=== PATIENT | male | born 1960 | race Caucasian/White ===

== ENCOUNTER 2016-03-09 13:31 | Day surgery (SDC) | payer MEDICARE ==
[2016-03-09] MEDS ORDERED: NS 500 ML IV ONE (13:41)
[2016-03-09] MEDS ORDERED: PROPOFOL 200 MG/20 ML VIAL IVP ONE (13:41)
[2016-03-09] MEDS ORDERED: BENZOCAINE UNIT DOSE SPRAY HURRICAINE MM ONE (13:41)
[2016-03-09] MEDS ORDERED: MIDAZOLAM 2 MG/2 ML VIAL IVP ONE (13:41)
[2016-03-09] MEDS ORDERED: fentaNYL 100 MCG/2 ML INJ IVP ONE (13:41)
--- NOTE | 2016-03-09 14:03 | CPEKG ---
Heart Rate: 100 RR Interval: 600 QRSD Interval: 88 QT Interval: 352 QTC Interval: 454 QRS [place]: -29 T Wave [place]: -3 EKG Severity - ABNORMAL ECG - EKG Impression: ATRIAL FIBRILLATION, V-RATE 74-118 EKG Impression: BORDERLINE LEFT AXIS DEVIATION EKG Impression: CONSIDER ANTERIOR INFARCT EKG Impression: BORDERLINE T ABNORMALITIES, INFERIOR LEADS Electronically Signed By: Lele Holder 09-Mar-2016 19:17:14
[2016-03-09] MEDS ORDERED: PROPOFOL 200 MG/20 ML VIAL ONE (14:37)
[2016-03-09 14:40] LABS: INR 0.96 (0.83-1.16); PROTIME(PATIENT) 12.7 SEC (12.0-15.0)
[2016-03-09 14:41] LABS: APTT 26.2 SEC (23.0-38.0)
--- NOTE | 2016-03-09 15:00 | CPEKG ---
Heart Rate: 95 RR Interval: 632 P-R Interval: 208 QRSD Interval: 96 QT Interval: 372 QTC Interval: 468 P [place]: 18 QRS [place]: -28 T Wave [place]: -1 EKG Severity - ABNORMAL ECG - EKG Impression: SINUS RHYTHM EKG Impression: FIRST DEGREE AV BLOCK EKG Impression: BORDERLINE LEFT AXIS DEVIATION EKG Impression: BORDERLINE R WAVE PROGRESSION, ANTERIOR LEADS Electronically Signed By: Lele Holder 09-Mar-2016 19:17:18
[2016-03-09] MEDS ORDERED: RIVAROXABAN 20 MG TAB PO ONE (15:30)
[2016-03-09 15:45] LABS: ANION GAP 14 mEq/L (8-16); CALCIUM 9.4 mg/dL (8.5-10.4); CARBON DIOXIDE 22 mEq/l (22-31); CHLORIDE 107 mEq/L (97-110); CREATININE 0.9 mg/dL (0.7-1.3); GLOMERULAR FILTRATION RATE > 60; GLUCOSE 90 mg/dL (70-100); MAGNESIUM 2.2 mg/dL (1.6-2.3); SODIUM 143 mEq/L (134-144)
--- NOTE | 2016-03-09 16:03 | EPPROC ---
Electrophysiology Procedure Note: Procedure: CV Indication: Symptomatic AF Procedure: [place] performed and [place] clot ruled out. Pt sedated by anesthesia staaf. Once sedated, pt underwent 200J of DCCV. Pt converted to sinus rhythm. Conclusion: Successful CV Patient Problems: Problems Problem Status Diagnosed Perforation of bladder during operative procedure Acute Atrial fibrillation Acute Rectosigmoid cancer Acute
== END 2016-03-09 17:42 | disposition home or self-care (01) ==
LOC: FCATH 13:31
PROVIDERS: ATTEND Internal Medicine Cardiovascular Disease
PROC: 5A2204Z Restoration of Cardiac Rhythm, Single (ICD-10-PCS; principal; 2016-03-09)
PROC: B245ZZ4 Ultrasonography of Left Heart, Transesophageal (ICD-10-PCS; principal; 2016-03-09)
DX: I48.91 Unspecified atrial fibrillation (principal); G47.33 Obstructive sleep apnea (adult) (pediatric); E66.9 Obesity, unspecified
CPT/HCPCS: J2250; J2704

== ENCOUNTER 2016-12-14 07:25 | Day surgery (SDC) | payer OTHER ==
[2016-12-14] MEDS ORDERED: MIDAZOLAM 2 MG/2 ML VIAL IVP ONE (07:33)
[2016-12-14] MEDS ORDERED: fentaNYL 100 MCG/2 ML INJ IVP ONE (07:33)
[2016-12-14] MEDS ORDERED: ATROPINE SULFATE 1 MG/10 ML SYR IVP ONE (07:33)
[2016-12-14] MEDS ORDERED: BENZOCAINE UNIT DOSE SPRAY HURRICAINE MM ONE (07:33)
[2016-12-14] MEDS ORDERED: NS 500 ML IV ONE (07:33)
--- NOTE | 2016-12-14 07:54 | CPEKG ---
Heart Rate: 87 RR Interval: 690 QRSD Interval: 96 QT Interval: 372 QTC Interval: 448 QRS [place]: -18 T Wave [place]: -8 EKG Severity - ABNORMAL ECG - EKG Impression: ATRIAL FIBRILLATION, V-RATE 71-108 EKG Impression: PROBABLE INFERIOR INFARCT, AGE INDETERMINATE EKG Impression: BORDERLINE R WAVE PROGRESSION, ANTERIOR LEADS EKG Impression: ATRIAL FIBRILLATION IS NEW IN COMPARISON TO PRIOR ECGS Electronically Signed By: Shay Berrios 14-Dec-2016 10:59:30
--- NOTE | 2016-12-14 07:54 | CPEKG ---
Heart Rate: 87 RR Interval: 690 QRSD Interval: 96 QT Interval: 372 QTC Interval: 448 QRS [place]: -18 T Wave [place]: -8 EKG Severity - ABNORMAL ECG - EKG Impression: ATRIAL FIBRILLATION, V-RATE 71-108 EKG Impression: PROBABLE INFERIOR INFARCT, AGE INDETERMINATE EKG Impression: BORDERLINE R WAVE PROGRESSION, ANTERIOR LEADS EKG Impression: ATRIAL FIBRILLATION IS NEW IN COMPARISON TO PRIOR ECGS Electronically Signed By: Shay Berrios 14-Dec-2016 10:59:30
[2016-12-14 08:14] LABS: INR 0.96 (0.83-1.16); PROTIME(PATIENT) 12.7 SEC (12.0-15.0)
--- NOTE | 2016-12-14 08:34 | PDANEPAE ---
ANE History of Present Illness A fib recurrent ANE Past Medical History - Cardiovascular History Hx Hypertension: No Hx Arrhythmias: Yes Hx Chest Pain: No Hx Coronary Artery / Peripheral Vascular Disease: No Hx CHF / Valvular Disease: No Hx Palpitations: Yes Cardiovascular History Comment: Chronic Afib-med. New DX 05/26. Pt. stopped Xarelto in 2013 because he didn't like it. 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 - Pulmonary History Hx COPD: No Hx Asthma/Reactive Airway Disease: Yes Hx Recent Upper Respiratory Infection: No Hx Oxygen in Use at Home: No Hx Sleep Apnea: Yes Pulmonary History Comment: Respiratory difficulties to cat dander. 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 - Endocrine History Hx Diabetes: No - Renal History Hx Renal Disorders: No - Liver History Hx Hepatic Disorders: No - Neurological & Psychiatric Hx Hx Neurological and Psychiatric Disorders: No - Cancer History Hx Cancer: Yes Cancer History Comment: Colon CA-DX 06/25. Colectomy, chemo, radiation. - Congenital Disorder History Hx Congenital Disorders: No - GI History Hx Gastrointestinal Disorders: Yes Gastrointestinal History Comment: Colon CA-blood in stool. - Other Health History Other Health History: Several missing and chipped teeth. - Chronic Pain History Chronic Pain: Yes (lower back) - Surgical History Prior Surgeries: 07/2013 LOWER ANT. COLON RESECTION AND LATER REVISION DUE TO LEAK. 07/2013 LEFT PORT PLACEMENT ANE Review of Systems Review of Systems: - Exercise capacity Exercise capacity: >=4 METS ANE Patient History - Allergies Allergies/Adverse Reactions: No Known Allergies Allergy (Verified 05/10/15 17:25) - Home Medications Home Medications: Multivitamins [Multivitamin (*)] 1 each PO DAILY 07/09/14 [Last Taken 12/13/16 08:00] Aspirin EC [Aspirin EC 81 mg (*)] 81 mg PO DAILY 12/12/16 [Last Taken 12/14/16 06:30] Ibuprofen [Motrin (*)] 200 - 400 mg PO Q6 PRN 12/12/16 [Last Taken Unknown] Rivaroxaban [Xarelto] 20 mg PO DAILY 12/12/16 [Last Taken Unknown] - Smoking Hx Smoking Status: Former smoker - Family Anes Hx Family Hx Anesthesia Complications: no ANE Labs/Vital Signs - Labs Result Diagrams: 12/14/16 08:00 - Vital Signs Height: 193.04 cm Weight: 117.934 kg ANE Physical Exam - Airway Mallampati Score: Class 3 - Pulmonary Pulmonary: no respiratory distress - ASA Status ASA Status: III (for IV general)
--- NOTE | 2016-12-14 08:57 | PDHPUP ---
History & Physical Update H&P update statement: This history and physical update is based on an assessment of the patient which was completed after admission or registration (within 24 hours), but prior to the surgery/procedure. H&P update: H&P reviewed & patient examined, no change in patient's condition since H&P completed
[2016-12-14] MEDS ORDERED: PROPOFOL 200 MG/20 ML VIAL ONE (08:59)
--- NOTE | 2016-12-14 09:25 | CPEKG ---
Heart Rate: 63 RR Interval: 952 P-R Interval: 204 QRSD Interval: 98 QT Interval: 424 QTC Interval: 435 P [place]: 17 QRS [place]: -18 T Wave [place]: -6 EKG Severity - ABNORMAL ECG - EKG Impression: SINUS RHYTHM EKG Impression: INFERIOR INFARCT, AGE INDETERMINATE EKG Impression: BORDERLINE R WAVE PROGRESSION, ANTERIOR LEADS EKG Impression: SINUS RHYTHM HAS REPLACED ATRIAL FIBRILLATION Electronically Signed By: Shay Berrios 14-Dec-2016 10:59:51
--- NOTE | 2016-12-14 09:25 | CPEKG ---
Heart Rate: 63 RR Interval: 952 P-R Interval: 204 QRSD Interval: 98 QT Interval: 424 QTC Interval: 435 P [place]: 17 QRS [place]: -18 T Wave [place]: -6 EKG Severity - ABNORMAL ECG - EKG Impression: SINUS RHYTHM EKG Impression: INFERIOR INFARCT, AGE INDETERMINATE EKG Impression: BORDERLINE R WAVE PROGRESSION, ANTERIOR LEADS EKG Impression: SINUS RHYTHM HAS REPLACED ATRIAL FIBRILLATION Electronically Signed By: Shay Berrios 14-Dec-2016 10:59:51
[2016-12-14] MEDS ORDERED: APIXABAN 5 MG TAB ONE (09:35)
[2016-12-14] MEDS ORDERED: APIXABAN 5 MG TAB PO ONE (10:00)
--- NOTE | 2016-12-15 12:47 | EPPROC ---
Electrophysiology Procedure Note: Procedure: DCCV Indication: Symptomatic AF Procedure: Pt sedated. [place] performed. [place] clot excluded. 200J of synchronized DCCV given. Pt successfully converted to SR Conclusion: Successful CV Patient Problems: Problems Problem Status Onset Atrial fibrillation Acute Perforation of bladder during operative procedure Acute Rectosigmoid cancer Acute
== END 2016-12-14 09:59 | disposition home or self-care, planned readmission (81) ==
LOC: FSGY 07:25 → FCATH 09:59
PROVIDERS: ATTEND Internal Medicine Cardiovascular Disease
PROC: 5A2204Z Restoration of Cardiac Rhythm, Single (ICD-10-PCS; principal; 2016-12-14)
PROC: B245ZZ4 Ultrasonography of Left Heart, Transesophageal (ICD-10-PCS; principal; 2016-12-14)
DX: I48.2 Chronic atrial fibrillation (principal); J45.909 Unspecified asthma, uncomplicated; G47.33 Obstructive sleep apnea (adult) (pediatric)
CPT/HCPCS: J0461; J2704

== ENCOUNTER → 2017-02-20 | Outpatient (CLI) | payer OTHER | LOC: CIMAGING 07:08 | PROVIDERS: ATTEND Internal Medicine Hematology & Oncology | DX: M54.9 Dorsalgia, unspecified (principal); Z85.51 Personal history of malignant neoplasm of bladder | CPT/HCPCS: 76770-PO ==

== ENCOUNTER 2017-05-31 08:25 | Day surgery (SDC) | payer OTHER ==
[2017-05-31] MEDS ORDERED: MIDAZOLAM 2 MG/2 ML VIAL IVP ONE (08:35)
[2017-05-31] MEDS ORDERED: NS 500 ML IV ONE (08:35)
[2017-05-31] MEDS ORDERED: ATROPINE SULFATE 1 MG/10 ML SYR IVP ONE (08:35)
[2017-05-31] MEDS ORDERED: fentaNYL 100 MCG/2 ML INJ IVP ONE (08:35)
--- NOTE | 2017-05-31 08:49 | CPEKG ---
Heart Rate: 79 RR Interval: 759 QRSD Interval: 104 QT Interval: 388 QTC Interval: 445 QRS [place]: -33 T Wave [place]: 7 EKG Severity - ABNORMAL ECG - EKG Impression: ATRIAL FIBRILLATION--Recurrent since December 14, 2016 EKG Impression: LEFT AXIS DEVIATION EKG Impression: BORDERLINE R WAVE PROGRESSION, ANTERIOR LEADS EKG Impression: BORDERLINE T ABNORMALITIES, INFERIOR LEADS EKG Impression: Low voltage throughout Electronically Signed By: Steven Reece 31-May-2017 11:02:21
[2017-05-31 09:25] LABS: INR 1.06 (0.83-1.16)
[2017-05-31] MEDS ORDERED: ATROPINE SULFATE 1 MG/10 ML SYR ONE (10:40)
[2017-05-31] MEDS ORDERED: PROPOFOL 200 MG/20 ML VIAL ONE (10:52)
--- NOTE | 2017-05-31 10:56 | PDANEPAE ---
ANE Past Medical History - Cardiovascular History Hx Hypertension: No Hx Arrhythmias: Yes Hx Chest Pain: No Hx Coronary Artery / Peripheral Vascular Disease: No Hx CHF / Valvular Disease: No Hx Palpitations: Yes Cardiovascular History Comment: Chronic Afib-med. New DX 05/26. Pt. stopped Xarelto in 2013 because he didn't like it. 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 - Pulmonary History Hx COPD: No Hx Asthma/Reactive Airway Disease: Yes Hx Recent Upper Respiratory Infection: No Hx Oxygen in Use at Home: No Hx Sleep Apnea: Yes Pulmonary History Comment: Respiratory difficulties to cat dander. 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 - Endocrine History Hx Diabetes: No - Renal History Hx Renal Disorders: No - Liver History Hx Hepatic Disorders: No - Neurological & Psychiatric Hx Hx Neurological and Psychiatric Disorders: No - Cancer History Hx Cancer: Yes Cancer History Comment: Colon CA-DX 06/25. Colectomy, chemo, radiation. - Congenital Disorder History Hx Congenital Disorders: No - GI History Hx Gastrointestinal Disorders: Yes Gastrointestinal History Comment: Colon CA-blood in stool. - Other Health History Other Health History: Several missing and chipped teeth. - Chronic Pain History Chronic Pain: Yes (lower back) - Surgical History Prior Surgeries: 07/2013 LOWER ANT. COLON RESECTION AND LATER REVISION DUE TO LEAK. 07/2013 LEFT PORT PLACEMENT ANE Review of Systems Review of Systems: ANE Patient History - Allergies Allergies/Adverse Reactions: No Known Allergies Allergy (Verified 05/10/15 17:25) - Home Medications Home Medications: Multivitamins [Multivitamin (*)] 1 each PO DAILY 07/09/14 [Last Taken 12/13/16 08:00] Aspirin EC [Aspirin EC 81 mg (*)] 81 mg PO DAILY 12/12/16 [Last Taken 12/14/16 06:30] Ibuprofen [Motrin (*)] 200 - 400 mg PO Q6 PRN 12/12/16 [Last Taken Unknown] Rivaroxaban [Xarelto] 20 mg PO DAILY 12/12/16 [Last Taken Unknown] - Anes Hx Anes Hx: no prior problems - Smoking Hx Smoking Status: Former smoker - Family Anes Hx Family Hx Anesthesia Complications: no ANE Labs/Vital Signs - Labs Result Diagrams: 05/31/17 08:58 - Vital Signs Height: 193 cm Weight: 122.5 kg ANE Physical Exam - Airway Neck exam: FROM Mouth exam: normal dental/mouth exam - Pulmonary Pulmonary: no respiratory distress, no rales or rhonchi - Cardiovascular Cardiovascular: irregularly irregular - ASA Status ASA Status: III ANE Anesthesia Plan Anesthesia Plan: GA with mask
--- NOTE | 2017-05-31 11:08 | CPEKG ---
Heart Rate: 60 RR Interval: 1000 P-R Interval: 220 QRSD Interval: 102 QT Interval: 460 QTC Interval: 460 P [place]: 12 QRS [place]: -32 T Wave [place]: -3 EKG Severity - ABNORMAL ECG - EKG Impression: SINUS RHYTHM EKG Impression: FIRST DEGREE AV BLOCK EKG Impression: PROBABLE INFERIOR INFARCT, AGE INDETERMINATE EKG Impression: BORDERLINE R WAVE PROGRESSION, ANTERIOR LEADS EKG Impression: Diffuse ST-T wave abnormalities. EKG Impression: Low voltage EKG Impression: Resolution of atrial fibrillation since May 31, 2017, 8:47 Electronically Signed By: Steven Reece 31-May-2017 17:46:29
--- NOTE | 2017-05-31 11:12 | EPPROC ---
Electrophysiology Procedure Note: Procedure: Synchronized DCCV Indication: Symptomatic AF Procedure: pt sedated by anesthesia staff. Once sedated, pt was Cv with 200J of synchronized DCCV. After moving patches, the CV succeeded after third attempt and pt converted to SR Conclusion: Successful DCCV Patient Problems: Problems Problem Status Onset Atrial fibrillation Acute Perforation of bladder during operative procedure Acute Rectosigmoid cancer Acute
[2017-05-31] MEDS ORDERED: fentaNYL 100 MCG/2 ML INJ IVP PRN (11:13)
[2017-05-31] MEDS ORDERED: PROMETHAZINE HCL 25 MG/ML INJ IVP PRN (11:13)
[2017-05-31] MEDS ORDERED: ONDANSETRON 4 MG/2 ML VIAL IVP PRN (11:13)
[2017-05-31] MEDS ORDERED: NALOXONE HCL 0.4 MG/ML INJ IVP PRN (11:13)
--- NOTE | 2017-05-31 11:14 | POSTANESTH ---
Post Anesthetic Evaluation Cardiovascular Status: Normal, Stable Respiratory Status: Normal, Stable, Similar to Pre-op Cond. Level of Consciousness/Mental Status: Can Participate in Eval, Mildly Sleepy, Arousable Pain Control: Adequate, Prn Tx Ordered Nausea/Vomiting Control: Adequate, Prn Tx Ordered Complications Possibly Related to Anesthesia: None Noted
== END 2017-05-31 12:03 | disposition home or self-care (01) ==
LOC: FCATH 08:25
PROVIDERS: ATTEND Internal Medicine Cardiovascular Disease
PROC: 5A2204Z Restoration of Cardiac Rhythm, Single (ICD-10-PCS; principal; 2017-05-31)
DX: I48.91 Unspecified atrial fibrillation (principal); G47.33 Obstructive sleep apnea (adult) (pediatric); Z79.01 Long term (current) use of anticoagulants; Z85.048 Personal history of other malignant neoplasm of rectum, rectosigmoid junction, and anus
CPT/HCPCS: J0461; J2704

== ENCOUNTER 2017-07-25 13:02 | Inpatient (IN) | payer OTHER ==
[2017-07-25] MEDS ORDERED: ACETAMINOPHEN 325 MG TAB PO PRN (13:34)
--- NOTE | 2017-07-25 13:50 | CPEKG ---
Heart Rate: 59 RR Interval: 1017 P-R Interval: 208 QRSD Interval: 102 QT Interval: 436 QTC Interval: 432 P [place]: 25 QRS [place]: -28 T Wave [place]: 5 EKG Severity - OTHERWISE NORMAL ECG - EKG Impression: SINUS RHYTHM EKG Impression: BORDERLINE LEFT AXIS DEVIATION Electronically Signed By: Shay Berrios 25-Jul-2017 20:26:49
--- NOTE | 2017-07-25 14:04 | PDCARPN ---
Cardiology Progress Note Chief Complaint: PAF Assessment/Plan: Assessment: Johnny is a 57 y/o M with a history of PAF admitted for Sotalol loading. He has required multiple CV for PAF and complains of feeling terrible when in the rhythm. Plan: 1. PAF- currently in NSR with QTc wnl. If BMP is normal he will begin Sotalol 120mg BID. He will be monitored on tele and EKG's repeated 2 hours after every Sotalol dose. 07/25/17 14:01 Subjective: He feels great. He has no cardiac complaints today. When in a.fib he complains of severe fatigue. Objective: Vital Signs (8 Hrs) Temp Pulse Resp BP Pulse Ox 07/25/17 13:22 36.6 C 70 18 122/83 H 95 Intake/Output (24 Hrs) 07/24/17 07/25/17 07/26/17 05:59 05:59 05:59 Other: Weight 120.656 kg EKG: NSR QTc wnl - Physical Exam Constitutional: WDWN Cardiovascular: regular rate and rhythm, no murmurs, no rubs, no gallops Respiratory: clear to auscultate bilat Skin: no edema Neurologic: AAOx3 ICD10 Worksheet Patient Problems: Problems Problem Status Onset Rectosigmoid cancer Acute Atrial fibrillation Acute Perforation of bladder during operative procedure Acute
[2017-07-25 14:26] LABS: PLATELET COUNT 230 10^3/uL (150-400)
[2017-07-25 14:42] LABS: INR 0.94 (0.83-1.16); PROTIME(PATIENT) 12.8 SEC (12.0-15.0)
[2017-07-25] MEDS ORDERED: SOTALOL HCL 80 MG TAB PO SCH (15:20)
--- NOTE | 2017-07-25 16:04 | PDMN ---
Medical Necessity Medical necessity: MCG M505 afib sotalol loading
--- NOTE | 2017-07-25 17:36 | CPEKG ---
Heart Rate: 44 RR Interval: 1364 QRSD Interval: 104 QT Interval: 512 QTC Interval: 438 QRS [place]: -27 T Wave [place]: -9 EKG Severity - ABNORMAL ECG - EKG Impression: SINUS BRADYCARDIA EKG Impression: BORDERLINE LEFT AXIS DEVIATION EKG Impression: NONSPECIFIC T ABNORMALITIES, INFERIOR LEADS Electronically Signed By: Shay Berrios 25-Jul-2017 20:27:23
[2017-07-25] MEDS: APIXABAN 5 MG TAB PO SCH (19:58)
[2017-07-26] MEDS ORDERED: SOTALOL HCL 80 MG TAB PO SCH (01:30)
--- NOTE | 2017-07-26 03:39 | CPEKG ---
Heart Rate: 42 RR Interval: 1429 P-R Interval: 208 QRSD Interval: 104 QT Interval: 536 QTC Interval: 448 P [place]: 29 QRS [place]: -16 T Wave [place]: 1 EKG Severity - BORDERLINE ECG - EKG Impression: SINUS BRADYCARDIA EKG Impression: BORDERLINE LEFT AXIS DEVIATION EKG Impression: BORDERLINE R WAVE PROGRESSION, ANTERIOR LEADS Electronically Signed By: Shay Berrios 26-Jul-2017 16:28:22
[2017-07-26 04:37] LABS: INR 1.04 (0.83-1.16); PROTIME(PATIENT) 13.8 SEC (12.0-15.0)
[2017-07-26] MEDS: APIXABAN 5 MG TAB PO SCH ×2 (08:49→20:58)
[2017-07-26] MEDS: ASPIRIN EC 81 MG TAB PO SCH (08:49)
[2017-07-26] MEDS: SOTALOL HCL 80 MG TAB PO SCH ×2 (10:55→20:58)
--- NOTE | 2017-07-26 13:16 | CPEKG ---
Heart Rate: 42 RR Interval: 1429 P-R Interval: 204 QRSD Interval: 104 QT Interval: 516 QTC Interval: 432 P [place]: 31 QRS [place]: -24 T Wave [place]: -10 EKG Severity - BORDERLINE ECG - EKG Impression: SINUS BRADYCARDIA EKG Impression: BORDERLINE LEFT AXIS DEVIATION EKG Impression: BORDERLINE T ABNORMALITIES, INFERIOR LEADS Electronically Signed By: Shay Berrios 26-Jul-2017 16:28:29
--- NOTE | 2017-07-26 13:38 | ASMTCASEMG ---
Living Arrangements What is your living Answers: With Spouse arrangement? Who do you live with? Type Of Residence What kind of residence do Answers: House you live in? Discharge Plan Comments Coordination Status Comments Notes: CM spoke to KYM Seymour regarding d/c POC. Pt is a 57 y/o man admitted for sotalol. Pt will most likely d/c without any needs. No therapies ordered at this time. CM available for changes. Plan: Independent Date Signed: 07/26/2017 01:37 PM Electronically Signed By:STEFANIA Melendez
--- NOTE | 2017-07-26 13:39 | PDCARPN ---
Cardiology Progress Note Chief Complaint: PAF Assessment/Plan: Assessment: Johnny is a 57 y/o M with a history of PAF admitted for Sotalol loading. He has required multiple CV for PAF and complains of feeling terrible when in the rhythm. Plan: 1. PAF- currently in NSR. Sotalol has been decreased to 80mg BID secondary to bradycardia. His QTc has remained wnl. 07/26/17 13:38 Subjective: He denies any CP, SOB, or palpitations. Objective: Vital Signs (8 Hrs) Temp Pulse Resp BP Pulse Ox 07/26/17 11:37 36.4 C 60 19 108/80 95 07/26/17 07:14 36.3 C 50 L 19 114/71 97 Intake/Output (24 Hrs) 07/25/17 07/26/17 07/27/17 05:59 05:59 05:59 Intake Total 1340 Output Total 200 Balance 1140 Intake: Oral (ml) 1340 Output: Urine (ml) 200 Toilet 200 Other: Weight 120.656 kg Output Comment Toilet self care with his colostomy Result Diagrams: 07/25/17 14:15 07/26/17 03:20 Telemetry: sinus shekhar predominates HR 40-60BPM - Physical Exam Constitutional: WDWN Cardiovascular: regular rate and rhythm, no murmurs, no rubs, no gallops Respiratory: clear to auscultate bilat, no crackles, no wheezes Skin: no edema Neurologic: AAOx3 ICD10 Worksheet Patient Problems: Problems Problem Status Onset Atrial fibrillation Acute Perforation of bladder during operative procedure Acute Rectosigmoid cancer Acute
--- NOTE | 2017-07-26 23:07 | CPEKG ---
Heart Rate: 44 RR Interval: 1364 P-R Interval: 220 QRSD Interval: 106 QT Interval: 532 QTC Interval: 456 P [place]: 23 QRS [place]: -17 T Wave [place]: 2 EKG Severity - ABNORMAL ECG - EKG Impression: SINUS BRADYCARDIA EKG Impression: FIRST DEGREE AV BLOCK EKG Impression: BORDERLINE R WAVE PROGRESSION, ANTERIOR LEADS Electronically Signed By: Shay Berrios 27-Jul-2017 17:13:18
[2017-07-27] MEDS: APIXABAN 5 MG TAB PO SCH (08:53)
[2017-07-27] MEDS: SOTALOL HCL 80 MG TAB PO SCH (08:53)
[2017-07-27] MEDS: ASPIRIN EC 81 MG TAB PO SCH (08:53)
--- NOTE | 2017-07-27 11:03 | CPEKG ---
Heart Rate: 46 RR Interval: 1304 P-R Interval: 192 QRSD Interval: 104 QT Interval: 496 QTC Interval: 434 P [place]: 30 QRS [place]: -9 T Wave [place]: -7 EKG Severity - ABNORMAL ECG - EKG Impression: SINUS BRADYCARDIA EKG Impression: PROBABLE INFERIOR INFARCT, AGE INDETERMINATE Electronically Signed By: Shay Berrios 27-Jul-2017 17:13:27
[2017-07-27 11:51] VITALS: BP 103/64
--- NOTE | 2017-07-27 12:54 | GDS ---
[f rep st] DISCHARGE SUMMARY DISCHARGE DIAGNOSES: 1. Paroxysmal atrial fibrillation. 2. Obstructive sleep apnea, on CPAP. HOSPITAL COURSE: For detailed H and P, please see prior dictation. Briefly, the patient is a 57-yea r-old male with a history of paroxysmal atrial fibrillation. He has required 3 cardioversions over t he past year. He does complain of significant fatigue when in atrial fibrillation. He had a consult ation with Dr. Greyson Shukla and ultimately decided to proceed with sotalol loading. He was admitted to the hospital on 07/25 and started on sotalol 120 mg b.i.d. He received 2 doses at 120 mg, but was bradycardic, and, therefore, the dose was reduced to 80 mg twice a day. He has remained bradycardic with heart rates between 40-60 beats per minute. He states this is his baseline. He denies any lig htheadedness, dizziness, or fatigue associated with bradycardia. On the day of discharge, his EKG sh owed sinus bradycardia with a heart rate of 46, with a QTc of 434. There is inferior T-wave flatteni ng. He has been monitored on telemetry and has remained in sinus rhythm and typically bradycardic. PHYSICAL EXAMINATION: GENERAL: Patient appears in no acute distress. VITALS: Blood pressure 127/8 1, heart rate 42, oxygen saturation of 96% on room air. Afebrile. LUNGS: Clear to auscultation. N o wheezes, rhonchi, or crackles auscultated. CARDIAC: Regular rate and rhythm, without any murmurs, rubs, or gallops appreciated. EXTREMITIES: Palpable pulses bilaterally, without any evidence of ed marva. DISCHARGE MEDICATIONS: He will begin sotalol 80 mg b.i.d. The rest of his medications have remained the same. He will continue Eliquis 5 mg b.i.d., Tylenol p.r.n. for pain, aspirin 81 mg daily, and m ultivitamin. PLAN: The patient is currently stable and ready for discharge home. He is scheduled to follow up [facility] Dr. Shukla on 08/24 at 3:30 p.m[address] [facility] Dr[facility]. /[id number]/MODL
== END 2017-07-27 12:26 | disposition home or self-care (01) | DRG 310 ==
LOC: F2W 13:02
PROVIDERS: ADMIT Internal Medicine Cardiovascular Disease; ATTEND Internal Medicine Cardiovascular Disease
DX: I48.0 Paroxysmal atrial fibrillation (principal); G47.33 Obstructive sleep apnea (adult) (pediatric); Z79.01 Long term (current) use of anticoagulants

== ENCOUNTER 2018-07-05 10:45 | Day surgery (SDC) | payer OTHER ==
[2018-07-05] MEDS ORDERED: fentaNYL 100 MCG/2 ML INJ IVP ONE (10:49)
[2018-07-05] MEDS ORDERED: MIDAZOLAM 2 MG/2 ML VIAL IVP ONE (10:49)
[2018-07-05] MEDS ORDERED: NS 500 ML IV ONE (10:49)
[2018-07-05] MEDS ORDERED: BENZOCAINE UNIT DOSE SPRAY HURRICAINE MM ONE (10:49)
[2018-07-05] MEDS ORDERED: ATROPINE SULFATE 1 MG/10 ML SYR IVP ONE (11:06)
[2018-07-05 11:43] LABS: INR 1.06 (0.83-1.16); PROTIME(PATIENT) 13.4 SEC (12.0-15.0)
--- NOTE | 2018-07-05 11:59 | PDANEPAE ---
ANE History of Present Illness a fib ANE Past Medical History - Cardiovascular History Hx Hypertension: No Hx Arrhythmias: Yes Hx Chest Pain: No Hx Coronary Artery / Peripheral Vascular Disease: No Hx CHF / Valvular Disease: No Hx Palpitations: Yes Cardiovascular History Comment: Chronic Afib-med. New DX 05/26. Pt. stopped Xarelto in 2013 because he didn't like it. 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 - Pulmonary History Hx COPD: No Hx Asthma/Reactive Airway Disease: Yes Hx Recent Upper Respiratory Infection: No Hx Oxygen in Use at Home: No Hx Sleep Apnea: Yes Pulmonary History Comment: Respiratory difficulties to cat dander. 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 - Endocrine History Hx Diabetes: No Hypothyroid: No Hyperthyroid: No Obesity: mild - Renal History Hx Renal Disorders: No - Liver History Hx Hepatic Disorders: No - Neurological & Psychiatric Hx Hx Neurological and Psychiatric Disorders: No - Cancer History Hx Cancer: Yes Cancer History Comment: Colon CA-DX 06/25. Colectomy, chemo, radiation. - Congenital Disorder History Hx Congenital Disorders: No - GI History Hx Gastrointestinal Disorders: Yes Gastrointestinal History Comment: Colon CA-blood in stool. - Other Health History Other Health History: Several missing and chipped teeth. - Chronic Pain History Chronic Pain: Yes (lower back) - Surgical History Prior Surgeries: 07/2013 LOWER ANT. COLON RESECTION AND LATER REVISION DUE TO LEAK. 07/2013 LEFT PORT PLACEMENT ANE Review of Systems Review of systems is: negative Review of Systems: - Exercise capacity Exercise capacity: >=4 METS ANE Patient History - Allergies Allergies/Adverse Reactions: No Known Allergies Allergy (Verified 05/10/15 17:25) - Home Medications Home medications: home medication list seen and reviewed Home Medications: Multivitamins [Multivitamin (*)] 1 each PO DAILY 07/09/14 [Last Taken 07/25/17] Aspirin EC [Aspirin EC 81 mg (*)] 81 mg PO DAILY 12/12/16 [Last Taken 07/25/17] Acetaminophen [Tylenol 325mg (*)] 325 mg PO DAILY PRN 07/25/17 [Last Taken Unknown] Apixaban [Eliquis] 5 mg PO BID 07/25/17 [Last Taken 07/25/17] - NPO status NPO Status: no food or drink >8 hours - Anes Hx Anes Hx: no prior problems - Smoking Hx Smoking Status: Never smoked - Family Anes Hx Family Anes Hx: none Family Hx Anesthesia Complications: no ANE Labs/Vital Signs - Labs Result Diagrams: 07/05/18 11:10 - Vital Signs Height: 193 cm Weight: 113.4 kg ANE Physical Exam - Airway Neck exam: FROM Mallampati Score: Class 2 Mouth exam: normal dental/mouth exam - Pulmonary Pulmonary: no respiratory distress, clear to auscultation - Cardiovascular Cardiovascular: no murmur, rub, or gallop, irregularly irregular - ASA Status ASA Status: III ANE Anesthesia Plan Anesthesia Plan: GA with mask Total IV Anesthesia: Yes
--- NOTE | 2018-07-05 12:09 | PDGENHP ---
History & Physical Chief Complaint: persistent atrial fibrillation History of Present Illness: persistent atrial fibrillation, on eliquis with occasional missed doses Relevant Physical Exam: irr irr, normal rate, no MRG. CTAB. A+Ox4. no focal deficits. Cardiorespiratory Assessment: persistent AF -> [place]+CV
[2018-07-05] MEDS ORDERED: PROPOFOL/EMULSION 500 MG/50 ML BOTTLE IV ONE (12:24)
--- NOTE | 2018-07-05 12:44 | EPPROC ---
Electrophysiology Procedure Note: Date: 07/05/2018 Airport Planner: Brodie Mack MD Procedures: Transesophageal ECHO-[id number] Elective cardioversion -[id number] Indications: 58-year-old male with persistent atrial fibrillation Techniques: Following informed consent, the patient was brought to the procedure area in a fasting nonsedated state, in atrial fibrillation rhythm. IV sedation was provided by the anesthesiology service. Transesophageal echocardiography was performed, demonstrating the absence of left atrial appendage thrombus (please see formal report for full details). After ensuring adequate sedation, defibrillation pads were applied in an anteroposterior orientation to the chest, and a single 200 joule biphasic R-wave synchronized shock was delivered, resulting in termination of atrial fibrillation rhythm and buddhism of sinus rhythm with frequent PACs. The patient tolerated the procedure well. EBL: None Complications: None Assessment: Successful [place] and cardioversion of atrial fibrillation Plan: Continue Eliquis 5 mg twice daily for 1 month postprocedure without interruption Discuss atrial fibrillation ablation with Dr. Coleman in clinic Patient Problems: Problems Problem Status Onset Atrial fibrillation Acute Perforation of bladder during operative procedure Acute Rectosigmoid cancer Acute
[2018-07-05] MEDS ORDERED: NALOXONE HCL 0.4 MG/ML INJ IVP PRN (12:45)
--- NOTE | 2018-07-05 12:46 | POSTANESTH ---
Post Anesthetic Evaluation Cardiovascular Status: Normal, Stable Respiratory Status: Normal, Stable Level of Consciousness/Mental Status: Can Participate in Eval Pain Control: Adequate, Prn Tx Ordered Nausea/Vomiting Control: Adequate, Prn Tx Ordered Complications Possibly Related to Anesthesia: None Noted
--- NOTE | 2018-07-12 10:50 | CPEKG ---
Test Reason : OPEN Blood Pressure : / mmHG Vent. Rate : 085 BPM Atrial Rate : 000 BPM P-R Int : 174 ms QRS Dur : 103 ms QT Int : 376 ms P-R-T Axes : 000 -24 010 degrees QTc Int : 447 ms Atrial fibrillation Probable anteroseptal infarct, old Confirmed by Shay Leach ([id number]) on 07/12/2018 10:50:06 AM Referred By: Salvador Mack Confirmed By:Shay Leach
--- NOTE | 2018-07-12 10:58 | CPEKG ---
Test Reason : OPEN Blood Pressure : / mmHG Vent. Rate : 065 BPM Atrial Rate : 066 BPM P-R Int : 201 ms QRS Dur : 107 ms QT Int : 438 ms P-R-T Axes : 030 -23 001 degrees QTc Int : 456 ms Sinus rhythm with premature atrial contractions Abnormal R wave progression. Consider old anteroseptal infarction Confirmed by Shay Leach ([id number]) on 07/12/2018 10:58:14 AM Referred By: Salvador Mack Confirmed By:Shay Leach
== END 2018-07-05 14:05 | disposition home or self-care (01) ==
LOC: FCATH 10:45
PROVIDERS: ATTEND Internal Medicine Cardiovascular Disease
DX: I48.1 Persistent atrial fibrillation (principal); R53.83 Other fatigue; Z79.01 Long term (current) use of anticoagulants; G47.33 Obstructive sleep apnea (adult) (pediatric); Z85.038 Personal history of other malignant neoplasm of large intestine
CPT/HCPCS: J2704